=== PATIENT | female | born 1985 | race Caucasian/White ===

== ENCOUNTER 2017-06-28 06:50 | Emergency (ER) | payer MEDICAID ==
--- NOTE | 2017-06-28 07:18 | ER Document Report ---
ED GI/ - General Mode of Arrival: Medic Information source: Patient TRAVEL OUTSIDE OF THE U.[place] IN LAST 30 DAYS: No - HPI Patient complains to provider of: Vomiting Onset: Other - see narrative Similar symptoms previously: Yes Recently seen / treated by doctor: Yes - General Chief Complaint: Nausea/Vomiting Stated Complaint: POSSIBLE WITHDRWALS Time Seen by Provider: 06/28/17 06:59 Notes: Patient is a 31-year-old female who presents to the emergency department today secondary to methadone withdrawal. She states she missed her appointment yesterday because her son was up late at night and she overslept her appointment yesterday. Patient states she is prescribed her methadone through the [facility]. Patient states she went to her appointment this morning at 0600 but was sent here secondary to persistent vomiting. Patient complains of nausea, vomiting, and diarrhea. (DAGO ANDERSON) - Related Data Allergies/Adverse Reactions: No Known Allergies Allergy (Verified 03/29/16 11:40) Past Medical History - General Information source: Patient - Social History Smoking Status: Unknown if Ever Smoked Cigarette use (# per day): No Drug Abuse: Marijuana, Prescription drugs - Now on methadone Lives with: Family Family History: Reviewed & Not Pertinent - Medical History Medical History: Negative Surgical Hx: Negative - Immunizations Hx Diphtheria, Pertussis, Tetanus Vaccination: Yes Review of Systems - Review of Systems Constitutional: See HPI, Other - Methadone withdrawal EENT: No symptoms reported Cardiovascular: No symptoms reported Respiratory: No symptoms reported Gastrointestinal: See HPI, Diarrhea, Nausea, Vomiting Genitourinary: No symptoms reported Female Genitourinary: No symptoms reported Musculoskeletal: No symptoms reported Skin: No symptoms reported Hematologic/Lymphatic: No symptoms reported Neurological/Psychological: No symptoms reported -: Yes All other systems reviewed and negative Physical Exam - Vital signs Vitals: BP Pulse Ox 146/91 H 100 06/28/17 06:54 06/28/17 06:54 - Notes Notes: PHYSICAL EXAM GENERAL: Sleeping upon entry, wakes up to vomit, interacts appropriately once awake. Small amount of yellow emesis in emesis bag at bedside. Mildly diaphoretic. No acute distress. HEAD: Normocephalic, atraumatic. EYES: Pupils equal, round, and reactive to light. Extraocular movements intact. ENT: Oral mucosa moist, tongue midline. NECK: Full range of motion. Supple. Trachea midline. LUNGS: Clear to auscultation bilaterally, no wheezes, rales, or rhonchi. No respiratory distress. HEART: Regular rate and rhythm. No murmurs, gallops, or rubs. ABDOMEN: Soft, non-tender. Non-distended. Bowel sounds present in all 4 quadrants. EXTREMITIES: Moves all 4 extremities spontaneously. No cyanosis. NEUROLOGICAL: Alert and oriented x3. Normal speech. PSYCH: Normal affect, normal mood. SKIN: Warm, dry, normal turgor. No rashes or lesions noted. (DAGO ANDERSON) Course - Re-evaluation Re-evalutation: 06/28/17 07:24 Patient has missed her methadone dose for the past 2 days, symptoms consistent with withdrawal, patient is requesting methadone here. I discussed with the patient that she is responsible for getting to her methadone appointments and I do not have a license to prescribe methadone. I will not be providing her with methadone or other narcotics here. I am happy to treat her withdrawal with Zofran for vomiting, Bentyl for abdominal cramping and Toradol for muscle pain. Patient is mildly hypertensive but not tachycardic. Patient will not be given clonidine at this time. Patient will be discharged to home and encouraged to follow-up with the methadone clinic today. (ROLANDO FOWLER) - Vital Signs Vital signs: Temp Pulse Resp BP Pulse Ox 98.5 F 128/80 H 97 06/28/17 07:06 06/28/17 08:01 06/28/17 08:02 Discharge - Discharge Clinical Impression: Acute narcotic withdrawal Condition: Stable Disposition: HOME, SELF-CARE Additional Instructions: Go directly to the methadone clinic. I have prescribed you Zofran to help with your vomiting, Phenergan suppositories will also help with your vomiting, you may take Imodium for diarrhea. You may take ibuprofen 800 mg every 8 hours for muscle pain. Prescriptions: Ondansetron [Zofran Odt 4 mg Tablet] 1 - 2 tab PO Q4H PRN #15 tab.rapdis PRN Reason: For Nausea/Vomiting Promethazine HCl [Phenergan 25 mg Supp.rect] 1 supp OH Q6H #12 supp.rect Scribe Attestation: 06/28/17 15:42 I personally performed the services described in the documentation, reviewed and edited the documentation which was dictated to the scribe in my presence, and it accurately records my words and actions. (ROLANDO FOWLER) Scribe Documentation - Scribe Written by Stanley:: Stanley Young, 06/28/2017 0807 acting as scribe for :: Olivier
[2017-06-28] MEDS ORDERED: KETOROLAC TROMETHAMINE INJ/PF 30 MG/1 ML SDV IV ONE (07:19)
[2017-06-28] MEDS ORDERED: ONDANSETRON HCL INJ/PF 4 MG/2 ML SDV IV ONE (07:19)
[2017-06-28] MEDS ORDERED: DICYCLOMINE HCL INJ 20 MG/2 ML AMPULE IM ONE (07:21)
[2017-06-28 08:11] VITALS: BP 128/80
== END 2017-06-28 08:11 | disposition home or self-care (01) ==
LOC: ER 06:50
DX: F19.939 Other psychoactive substance use, unspecified with withdrawal, unspecified (principal); R11.2 Nausea with vomiting, unspecified; R19.7 Diarrhea, unspecified
CPT/HCPCS: 99283; 96372; 96374; 96375; J0500; J1885; J2405

== ENCOUNTER 2017-12-12 11:08 | Emergency (ER) | payer MEDICAID, OTHER ==
[2017-12-12 11:30] VITALS: BP 157/79
[2017-12-12] MEDS ORDERED: ONDANSETRON HCL INJ/PF 4 MG/2 ML SDV IV ONE (12:45)
[2017-12-12] MEDS ORDERED: NORMAL SALINE 1000 ML 1,000 ML IV ONE ×2 (12:45→15:56)
--- NOTE | 2017-12-12 12:47 | ER Document Report ---
ED Medical Screen (RME) - General Chief Complaint: Nausea/Vomiting Stated Complaint: NAUSEA/VOMITING/ABDOMINAL PAIN Time Seen by Provider: 12/12/17 12:44 Notes: Patient states that she is trying to wean herself off methadone. She states she last took methadone yesterday. She states she went to clinic today to try to take it but was vomiting. She states is been vomiting all morning. TRAVEL OUTSIDE OF THE [place] IN LAST 30 DAYS: No - Related Data Allergies/Adverse Reactions: No Known Allergies Allergy (Verified 12/12/17 12:28) Past Medical History - Social History Chew tobacco use (# tins/day): No Frequency of alcohol use: None Drug Abuse: Marijuana, Other Renal/ Medical History: Denies: Hx Peritoneal Dialysis - Immunizations Hx Diphtheria, Pertussis, Tetanus Vaccination: Yes Physical Exam - Vital signs Vitals: Temp Pulse Resp BP Pulse Ox 98.5 F 58 L 20 157/79 H 100 12/12/17 11:28 12/12/17 11:28 12/12/17 11:28 12/12/17 11:28 12/12/17 11:28 Course - Vital Signs Vital signs: Temp Pulse Resp BP Pulse Ox 98.5 F 58 L 20 157/79 H 100 12/12/17 11:28 12/12/17 11:28 12/12/17 11:28 12/12/17 11:28 12/12/17 11:28
[2017-12-12 15:13] LABS: HEMATOCRIT 39.3 % (36.0-47.0); HEMOGLOBIN 13.3 g/dL (12.0-15.5); MEAN CORPUSCULAR HEMOGLOBIN 29.7 pg (27.0-33.4); MEAN CORPUSCULAR HGB CONC 33.7 g/dL (32.0-36.0); MEAN CORPUSCULAR VOLUME 88 fl (80-97); PLATELET COUNT 244 10^3/uL (150-450); RED BLOOD COUNT 4.46 10^6/uL (3.72-5.28); RED CELL DISTRIBUTION WIDTH 13.2 % (11.5-14.0); WHITE BLOOD COUNT 17.7 10^3/uL (4.0-10.5)
[2017-12-12 15:36] LABS: ALANINE AMINOTRANSFERASE 24 U/L (9-52); ALBUMIN 4.6 g/dL (3.5-5.0); ALKALINE PHOSPHATASE 51 U/L (38-126); ANION GAP 11 (5-19); ASPARTATE AMINO TRANSFERASE 19 U/L (14-36); BILIRUBIN,DIRECT 0.3 mg/dL (0.0-0.4); BILIRUBIN,TOTAL 0.3 mg/dL (0.2-1.3); BLOOD UREA NITROGEN 11 mg/dL (7-20); CALCIUM 8.9 mg/dL (8.4-10.2); CARBON DIOXIDE 20 mmol/L (22-30); CHLORIDE 108 mmol/L (98-107); GLUCOSE 117 mg/dL (75-110); POTASSIUM 3.8 mmol/L (3.6-5.0)
[2017-12-12 15:38] LABS: ABSOLUTE LYMPHOCYTES# (MANUAL) 0.7 10^3/uL (0.5-4.7); ABSOLUTE MONOCYTES # (MANUAL) 0.9 10^3/uL (0.1-1.4); ABSOLUTE NEUTROPHILS# (MANUAL) 16.1 10^3/uL (1.7-8.2); BASOPHILS % (MANUAL) 0 % (0-2); EOSINOPHILS % (MANUAL) 0 % (0-6); LYMPHOCYTES % (MANUAL) 4 % (13-45); MONOCYTES % (MANUAL) 5 % (3-13); SEGMENTED NEUTROPHILS % (MAN) 91 % (42-78); TOTAL CELLS COUNTED 100
[2017-12-12 15:39] LABS: PLATELET COMMENT ADEQUATE; TOXIC GRANULATION SLIGHT
[2017-12-12 15:50] LABS: APPEARANCE,URINE CLEAR; BILIRUBIN,URINE NEGATIVE (NEGATIVE); COLOR,URINE STRAW; GLUCOSE, URINE NEGATIVE (NEGATIVE); KETONES,URINE 20 mg/dL (NEGATIVE); LEUKOCYTE ESTERASE,URINE NEGATIVE (NEGATIVE); NITRITE,URINE NEGATIVE (NEGATIVE); PROTEIN,URINE NEGATIVE (NEGATIVE); URINE SPECIFIC GRAVITY 1.011; UROBILINOGEN,URINE NEGATIVE mg/dL (<2.0)
[2017-12-12] MEDS ORDERED: METHADONE HCL 10 MG TABLET PO ONE (15:51)
[2017-12-12] MEDS ORDERED: DICYCLOMINE HCL INJ 20 MG/2 ML AMPULE IM ONE (15:52)
[2017-12-12] MEDS ORDERED: METOCLOPRAMIDE HCL INJ/PF 10 MG/2 ML SDV IV ONE (15:56)
--- NOTE | 2017-12-12 15:56 | ER Document Report ---
ED GI/ - General Mode of Arrival: Ambulatory Information source: Patient TRAVEL OUTSIDE OF THE [place] IN LAST 30 DAYS: No <JM KNAPP - Last Filed: 12/12/17 17:34> <CHASIDY OROZCO - Last Filed: 12/12/17 22:11> - General Chief Complaint: Nausea/Vomiting Stated Complaint: NAUSEA/VOMITING/ABDOMINAL PAIN Time Seen by Provider: 12/12/17 12:44 Notes: Patient is a 32-year-old female presenting to the emergency department complaining of nausea, vomiting and abdominal pain. Patient states that she went to the clinic to get methadone this morning but was unable to take medication due to vomiting. Patient states that she normally takes 40 mg of methadone although she does not have any at home. (JM KNAPP) - Related Data Allergies/Adverse Reactions: No Known Allergies Allergy (Verified 12/12/17 12:28) Past Medical History - General Information source: Patient - Social History Smoking Status: Never Smoker Chew tobacco use (# tins/day): No Frequency of alcohol use: None Drug Abuse: Marijuana, Other Family History: Reviewed & Not Pertinent Patient has suicidal ideation: No Patient has homicidal ideation: No - Immunizations Hx Diphtheria, Pertussis, Tetanus Vaccination: Yes <JM KNAPP - Last Filed: 12/12/17 17:34> Review of Systems - Review of Systems Constitutional: No symptoms reported EENT: No symptoms reported Cardiovascular: No symptoms reported Respiratory: No symptoms reported Gastrointestinal: See HPI, Abdominal pain, Nausea, Vomiting Genitourinary: No symptoms reported Female Genitourinary: No symptoms reported Musculoskeletal: No symptoms reported Skin: No symptoms reported Hematologic/Lymphatic: No symptoms reported Neurological/Psychological: No symptoms reported -: Yes All other systems reviewed and negative <JM KNAPP - Last Filed: 12/12/17 17:34> Physical Exam <JM KNAPP - Last Filed: 12/12/17 17:34> <CHASIDY OROZCO - Last Filed: 12/12/17 22:11> - Vital signs Vitals: Temp Pulse Resp BP Pulse Ox 98.5 F 58 L 20 157/79 H 100 12/12/17 11:28 12/12/17 11:28 12/12/17 11:28 12/12/17 11:28 12/12/17 11:28 - Notes Notes: GENERAL: Alert, interacts well. No acute distress. Patient is somnolent. HEAD: Normocephalic, atraumatic. EYES: Pupils equal, round, and reactive to light. Extraocular movements intact. NECK: Full range of motion. Supple. Trachea midline. ABDOMEN: Patient refuses abdominal exam. EXTREMITIES: Moves all 4 extremities spontaneously. NEUROLOGICAL: Alert and oriented x3. Normal speech. PSYCH: Normal affect, normal mood. SKIN: Warm, dry, normal turgor. No rashes or lesions noted. (JM KNAPP) Course - Laboratory Result Diagrams: 12/12/17 15:00 12/12/17 15:00 <JM KNAPP - Last Filed: 12/12/17 17:34> - Laboratory Result Diagrams: 12/12/17 15:00 12/12/17 15:00 <CHASIDY OROZCO - Last Filed: 12/12/17 22:11> - Re-evaluation Re-evalutation: 12/12/17 17:32 Patient states that she is feeling better and would like to go home. (JM KNAPP) 12/12/17 1732 Patient with some leukocytosis likely due from vomiting. Patient does not have any further abdominal pain. She is able to keep p.o. down since receiving fluids, nausea medication and methadone. She is to follow-up at the methadone clinic tomorrow. Patient would like to go home. Stable for discharge. Return if further concerns. Still does not want her abdomen examined of note. (CHASIDY OROZCO) - Vital Signs Vital signs: Temp Pulse Resp BP Pulse Ox 98.5 F 58 L 20 157/79 H 100 12/12/17 11:28 12/12/17 11:28 12/12/17 11:28 12/12/17 11:28 12/12/17 11:28 - Laboratory Laboratory results interpreted by me: 12/12/17 12/12/17 12/12/17 15:00 15:00 15:28 WBC 17.7 H Seg Neuts % (Manual) 91 H Lymphocytes % (Manual) 4 L Abs Neuts (Manual) 16.1 H Chloride 108 H Carbon Dioxide 20 L Glucose 117 H Urine Ketones 20 H Discharge <JM KNAPP - Last Filed: 12/12/17 17:34> <CHASIDY OROZCO - Last Filed: 12/12/17 22:11> - Discharge Clinical Impression: Opiate withdrawal Vomiting Qualifiers: Vomiting type: unspecified Vomiting Intractability: non-intractable Nausea presence: with nausea Qualified Code(s): R11.2 - Nausea with vomiting, unspecified Condition: Stable Disposition: HOME, SELF-CARE Instructions: Diarrhea, Nonspecific ([facility]), Vomiting ([facility]) Additional Instructions: Please go to methadone clinic tomorrow as scheduled. Referrals: RICARDO ALVES MD [Primary Care Provider] - Follow up as needed Scribe Attestation: 12/12/17 22:11 I personally performed the services described in the documentation, reviewed and edited the documentation which was dictated to the scribe in my presence, and it accurately records my words and actions. (CHASIDY OROZCO) Scribe Documentation - Scribe Written by Gertrudisibe:: Stanley Cagle, 12/12/2017 15:57 acting as scribe for :: Pam <JM KNAPP - Last Filed: 12/12/17 17:34>
== END 2017-12-12 17:35 | disposition home or self-care (01) ==
LOC: ER 11:08
DX: F11.23 Opioid dependence with withdrawal (principal); R11.2 Nausea with vomiting, unspecified; R10.9 Unspecified abdominal pain; F12.10 Cannabis abuse, uncomplicated; D72.829 Elevated white blood cell count, unspecified
CPT/HCPCS: 99284; 96372; 96361; 96374; 96375; 36415; 83690; 84703; 85025; 81025; 80053; 81001; J0500; J3490; J2765; J2405; J7030

== ENCOUNTER 2018-02-06 11:26 | Emergency (ER) | payer MEDICAID, OTHER ==
[2018-02-06 11:40] VITALS: BP 123/83
--- NOTE | 2018-02-06 11:55 | ER Document Report ---
ED General - General Chief Complaint: Vag Bleeding, +preg <12wks Stated Complaint: VAGINAL BLEEDING Time Seen by Provider: 02/06/18 11:54 Notes: Patient is a 6 weeks female who presents emergency department with chief complaint of pelvic cramping and vaginal spotting since Tuesday. Patient admits that she had a last menstrual period in December roughly around [address] [place] and then skipped a period in January. She states that she took a urine test within the past week. She admits that with her previous son she did have cramping but does not remember bleeding. She states she is concerned she is having a miscarriage. Past medical history significant for previous IVDU on methadone TRAVEL OUTSIDE OF THE [place] IN LAST 30 DAYS: No - Related Data Allergies/Adverse Reactions: No Known Allergies Allergy (Verified 02/06/18 12:16) Past Medical History - Social History Smoking Status: Smoker,Current Status Unk Family History: Reviewed & Not Pertinent Renal/ Medical History: Denies: Hx Peritoneal Dialysis - Immunizations Hx Diphtheria, Pertussis, Tetanus Vaccination: Yes Review of Systems - Review of Systems Constitutional: No symptoms reported Cardiovascular: No symptoms reported Respiratory: No symptoms reported Gastrointestinal: No symptoms reported Genitourinary: No symptoms reported Female Genitourinary: See HPI Musculoskeletal: No symptoms reported -: Yes All other systems reviewed and negative Physical Exam - Vital signs Vitals: Temp Pulse Resp BP Pulse Ox 98.4 F 89 18 123/83 100 02/06/18 11:37 02/06/18 11:37 02/06/18 11:37 02/06/18 11:37 02/06/18 11:37 - Notes Notes: PHYSICAL EXAM GENERAL: Alert, interacts well. HEAD: Normocephalic, atraumatic. EYES: Pupils equal, round, and reactive to light. Extraocular movements intact. ENT: Oral mucosa moist, tongue midline. NECK: Full range of motion. Supple. Trachea midline. LUNGS: Clear to auscultation bilaterally, no wheezes, rales, or rhonchi. No respiratory distress. HEART: Regular rate and rhythm. No murmurs, gallops, or rubs. ABDOMEN: Soft, nondistended, nontender. No guarding, rebound, or rigidity.. Bowel sounds present in all 4 quadrants. NEUROLOGICAL: Alert and oriented x4. Normal speech. PSYCH: Normal affect, normal mood. SKIN: Warm, dry, normal turgor. No rashes or lesions noted. Course - Re-evaluation Re-evalutation: 02/06/18 16:14 Patient is a 32-year-old female is hemodynamically stable, no acute distress and afebrile. Benign physical exam. Patient with [place] [id number]. No evidence of leukocytosis, anemia. No evidence of hepatic or renal abnormalities. Urinalysis without evidence of UTI. Ultrasound shows a viable intrauterine of 6 weeks without any evidence of subchorionic hemorrhage, ectopic. Patient to follow-up with [facility] in 48-72 hours repeat blood work. Patient given strict return precautions and stable for discharge home - Vital Signs Vital signs: Temp Pulse Resp BP Pulse Ox 98.4 F 89 18 123/83 100 02/06/18 11:37 02/06/18 11:37 02/06/18 11:37 02/06/18 11:37 02/06/18 11:37 - Laboratory Result Diagrams: 02/06/18 12:04 02/06/18 13:30 Laboratory results interpreted by me: 02/06/18 02/06/18 02/06/18 12:20 13:30 13:30 Serum HCG, Qual POSITIVE H Beta HCG, Quant 17628.00 H Ur Leukocyte Esterase MODERATE H - Diagnostic Test Radiology reviewed: Reports reviewed Discharge - Discharge Clinical Impression: Vaginal bleeding during Condition: Good Disposition: HOME, SELF-CARE Additional Instructions: : You are . care is best started as early in as possible. If you're unsure about continuing this , you should discuss this with your physician or with tractor mechanic apprentice at [facility]. You should take only medications approved by your physician. Acetaminophen can safely be taken for minor pains. As a rule, medication for chronic conditions such as asthma or seizures can safely be continued. You should discuss with the physician every medicine you take. Any regular exercise program can be continued. Talk to your physician, however, before engaging in competitive or demanding sports. Alcohol, smoking, and "street drugs" are dangerous to your baby. Cocaine is especially dangerous. Don't use any illicit drugs! BLEEDING DURING EARLY : You have been evaluated for passing blood while . While we take this symptom very seriously, most women with your degree of bleeding will go on to have a perfectly normal baby. At this time, there is no indication that a miscarriage will occur. (A miscarriage occurs when the fetus is abnormal. There is no medicine or treatment to prevent it.) A more serious cause of bleeding is tubal (or ectopic) . An ultrasound usually can show whether the is in the uterus or in the tube. Sometimes in early , no fetus is seen. In this case, careful follow-up, including repeat blood tests and repeat ultrasound, is necessary. Do not douche or have sex for at least a week, or until OK'd by the doctor. Don't use tampons. Call the doctor or return for re-examination if there is an increase in bleeding or cramping, extreme weakness, fainting, new abdominal pain, fever, or passage of tissue. REPEAT BLOOD TEST: At this time, it is uncertain if you have a viable . During the first three months of , the hormone produced from the placenta will steadily rise, usually doubling in value every 2 - 3 days. In order to determine if your is viable and likely be succesful, a repeat of this blood test for the hormone is recommended in 2 - 3 days. An order for this test to be done as an outpatient is being provided. After you have this repeat test done, call your doctor or call us for the results. If the value of the test is increasing as would be expected in a normal , then your is likely to be ok. However, if the value of the test is declining, it will suggest something has happened with your and it will not likely be a successful . FOLLOW-UP CARE: If you have been referred to a physician for follow-up care, call the physician s office for an appointment as you were instructed or within the next two days. If you experience worsening or a significant change in your symptoms (very heavy bleeding with large clots of blood, passage of tissue, more severe abdominal / pelvic pain or cramping, feeling faint or severe weakness, fever, etc.), notify the physician immediately or return to the Emergency Department at any time for re-evaluation. OBSTETRIC-GYNECOLOGIC (OB-INTERPRETIVE NATURALIST) PHYSICIANS IN [place]: [facility] [address] [place] [address] [phone] Forms: Follow-Up Laboratory Testing [facility] [NO LOCAL MD] - Follow up as needed [facility] [Provider Group] - 02/08/18
[2018-02-06 12:29] LABS: ABSOLUTE EOSINOPHILS # (AUTO) 0.1 10^3/uL (0.0-0.6); ABSOLUTE LYMPHOCYTES (AUTO) 1.1 10^3/uL (0.5-4.7); ABSOLUTE MONOCYTES (AUTO) 0.4 10^3/uL (0.1-1.4); BASOPHILS % (AUTO) 0.4 % (0-2); EOSINOPHILS % (AUTO) 1.4 % (0-6); HEMOGLOBIN 13.7 g/dL (12.0-15.5); LYMPHOCYTES % (AUTO) 17.1 % (13-45); MEAN CORPUSCULAR HEMOGLOBIN 29.9 pg (27.0-33.4); MEAN CORPUSCULAR HGB CONC 33.5 g/dL (32.0-36.0); MEAN CORPUSCULAR VOLUME 89 fl (80-97); MONOCYTES % (AUTO) 5.9 % (3-13); PLATELET COUNT 259 10^3/uL (150-450); RED CELL DISTRIBUTION WIDTH 13.4 % (11.5-14.0); SEGMENTED NEUTROPHILS % (AUTO) 75.2 % (42-78); TOTAL CELLS COUNTED % (AUTO) 100 %; WHITE BLOOD COUNT 6.7 10^3/uL (4.0-10.5)
[2018-02-06 12:39] LABS: AMORPHOUS SEDIMENT,URINE TRACE /HPF; APPEARANCE,URINE CLOUDY; BILIRUBIN,URINE NEGATIVE (NEGATIVE); COLOR,URINE YELLOW; GLUCOSE, URINE NEGATIVE (NEGATIVE); KETONES,URINE NEGATIVE (NEGATIVE); LEUKOCYTE ESTERASE,URINE MODERATE (NEGATIVE); NITRITE,URINE NEGATIVE (NEGATIVE); PROTEIN,URINE NEGATIVE (NEGATIVE); URINE SPECIFIC GRAVITY 1.012; UROBILINOGEN,URINE NEGATIVE mg/dL (<2.0)
[2018-02-06 14:04] LABS: ANION GAP 9 (5-19); BLOOD UREA NITROGEN 9 mg/dL (7-20); CALCIUM 9.6 mg/dL (8.4-10.2); CARBON DIOXIDE 26 mmol/L (22-30); CHLORIDE 107 mmol/L (98-107); GLUCOSE 81 mg/dL (75-110); POTASSIUM 3.9 mmol/L (3.6-5.0)
--- NOTE | 2018-02-06 15:41 | RADIOLOGY REPORT (SQ) ---
EXAM DESCRIPTION: U/S OB TRANSVAG W/DOPPLER COMPLETED DATE/TIME: 02/06/2018 3:25 pm REASON FOR STUDY: pelvic cramping COMPARISON: None. TECHNIQUE: Transvaginal static and realtime grayscale images acquired of the pelvis. Additional lina cted spectral and color Doppler images recorded. All images stored on PACs. [email or web address] CLINICAL DATES: ABDOULAYE 09/23/2018. EGA 7 weeks 2 days LIMITATIONS: None. FINDINGS: FETUS: Living intrauterine . ULTRASOUND EGA: 6 weeks 2 days ULTRASOUND ABDOULAYE: 09/30/2018 CRL: 0.6 cm FHR: 116 beats per minute. SUBCHORIONIC BLEED: No. SIZE OF BLEED: Not applicable. UTERUS: 8.9 x 5.7 x 4.2 cm. No masses. No anomalies. CERVICAL LENGTH: 2.1 cm. Closed. RIGHT ADNEXA: 3.5 x 3.5 x 2.6 cm. Normal ovary with normal vascular flow. No adnexal free fluid. No adnexal masses. LEFT ADNEXA: Not visualized. No adnexal free fluid. No adnexal masses. FREE FLUID: Small volume of free fluid. OTHER: No other significant finding. IMPRESSION: LIVING INTRAUTERINE . EGA 6 weeks 2 days Trimester of : First - 0 to 13 weeks. TECHNICAL DOCUMENTATION: JOB ID: [id number] HAIYUAN- All Rights Reserved rev Reading location - IP/workstation name: [email or web address]
== END 2018-02-06 16:32 | disposition home or self-care (01) ==
LOC: ER 11:26
DX: O26.851 Spotting complicating pregnancy, first trimester (principal); O26.891 Other specified pregnancy related conditions, first trimester; R10.2 Pelvic and perineal pain; Z3A.01 Less than 8 weeks gestation of pregnancy
CPT/HCPCS: 36415; 76817; 80048; 81001; 84702; 84703; 85025; 93976; 99284